=== PATIENT | female | born 1950 | race Caucasian/White ===

== ENCOUNTER 2020-03-11 14:42 | Emergency (ER) | payer MEDICARE, BC ==
[~2020-03-11] VITALS: Ht 152.4 cm; Wt 58.6 kg
--- NOTE | 2020-03-11 16:40 | NUR ---
pt is 70 yo female c/o headaches off and on since grd level fall 02/15, pt slipped in grease and fell backwards, no LOC, was evaluated at hospital, referred to ER from [facility], pt is also on blood thinner, pt is GCS 15, alert and oriented, resp even and unlabored, skin p/w/d.
--- NOTE | 2020-03-11 16:42 | NUR ---
Marin Jackson [employer] at bedside to evaluate pt
[2020-03-11 17:15] VITALS: BP 147/70
== END 2020-03-11 17:16 | disposition home or self-care (01) ==
LOC: ER 14:43
DX: S06.0X0A Concussion without loss of consciousness, initial encounter (principal); S16.1XXA Strain of muscle, fascia and tendon at neck level, initial encounter; I25.10 Atherosclerotic heart disease of native coronary artery without angina pectoris; I25.2 Old myocardial infarction; G89.29 Other chronic pain; Z98.890 Other specified postprocedural states; Z88.8 Allergy status to other drugs, medicaments and biological substances; W01.0XXA Fall on same level from slipping, tripping and stumbling without subsequent striking against object, initial encounter; Y93.89 Activity, other specified; Y92.89 Other specified places as the place of occurrence of the external cause; Y99.8 Other external cause status
CPT/HCPCS: 70450; 72125; 99285